=== PATIENT | male | born 1960 | race Caucasian/White ===

== ENCOUNTER 2022-06-03 07:29 | Emergency (ER) | payer OTHER ==
[~2022-06-03] VITALS: Ht 165.1 cm; Wt 88.9 kg
[2022-06-03 07:44] VITALS: BP 115/72
--- NOTE | 2022-06-03 08:02 | NUR ---
pt c/o left flank pain x3 days. denies injury or trauma. denies any urinary symptoms. urine collected and walked to lab.
[2022-06-03 08:10] LABS: APPEARANCE,URINE CLEAR (CLEAR); BILIRUBIN,URINE NEGATIVE (NEGATIVE); BLOOD, URINE NEGATIVE (NEGATIVE); COLOR,URINE YELLOW (YELLOW); LEUKOCYTE ESTERASE ,URINE NEGATIVE (NEGATIVE); NITRITE, URINE NEGATIVE (NEGATIVE); UGLUCOSE NEGATIVE (NEGATIVE)
[2022-06-03] MEDS ORDERED: methocarbamoL 500 MG TAB PO ONE (08:25)
[2022-06-03] MEDS ORDERED: LIDOCAINE 5% 1 EA PATCH TP SCH (08:25)
[2022-06-03] MEDS ORDERED: KETOROLAC 30 MG/ML VIAL IM ONE (08:25)
[2022-06-03 09:00] LABS: BASOPHILS % (AUTO) 0.7 % (0.0-2.0); EOSINOPHILS # (AUTO) 0.3 K/uL (0-0.4); EOSINOPHILS % (AUTO) 4.6 % (0.0-4.0); HEMATOCRIT 48.3 % (36-52); HEMOGLOBIN 16.6 g/dL (12.0-18.0); LYMPHOCYTES # (AUTO) 2.9 K/uL (2.0-11.5); LYMPHOCYTES % (AUTO) 42.2 % (20.5-51.1); MEAN CORPUSCULAR HEMOGLOBIN 32 pg (27-31); MEAN CORPUSCULAR HGB CONC 34 g/dL (33-37); MEAN CORPUSCULAR VOLUME 91.7 fL (80-94); MONOCYTES # (AUTO) 0.6 K/uL (0.8-1.0); MONOCYTES % (AUTO) 8.7 % (1.7-9.3); NEUTROPHILS % (AUTO) 43.8 % (42.2-75.2); PLATELET COUNT (AUTO) 160 K/uL (140-450); RED BLOOD CELL COUNT(AUTO) 5.27 MIL/uL (4.20-6.10); RED CELL DISTRIBUTION WIDTH 13.7 % (11.6-13.7); WHITE BLOOD COUNT (AUTO) 6.8 K/uL (4.8-10.8)
[2022-06-03 09:23] LABS: ALBUMIN 3.8 g/dL (3.4-5.0); ANION GAP 15.2 (8-16); CARBON DIOXIDE 25.8 mmol/L (21-32); CREATININE 1.5 mg/dL (0.6-1.3); TOTAL BILIRUBIN 0.5 mg/dL (0.0-1.0)
[2022-06-03] MEDS ORDERED: NACL 0.9% 1,000 ML IV ONE (09:45)
[2022-06-03] MEDS ORDERED: CYCL-711 PO (11:54)
[2022-06-03] MEDS ORDERED: LID5T TP (11:54)
[2022-06-03] MEDS ORDERED: IBUP-2213 PO (11:54)
[2022-06-03 12:21] VITALS: BP 129/90
--- NOTE | 2022-06-03 12:22 | NUR ---
Patient discharged with v/s stable. Written and verbal after care instructions given and explained. Patient alert, oriented and verbalized understanding of instructions. Ambulatory with steady gait. All questions addressed prior to discharge. ID band removed. Patient advised to follow up with PMD. Rx of flexeril, motrin, lidocaine patch given. Patient educated on indication of medication including possible reaction and side effects. Opportunity to ask questions provided and answered.
== END 2022-06-03 12:21 | disposition home or self-care (01) ==
LOC: MED 07:29
DX: N17.9 Acute kidney failure, unspecified (principal); R10.9 Unspecified abdominal pain; M62.838 Other muscle spasm; M54.50 Low back pain, unspecified; Z79.1 Long term (current) use of non-steroidal anti-inflammatories (NSAID); Z79.899 Other long term (current) drug therapy
CPT/HCPCS: 36415; 74176; 80053; 81003; 85025; 87086; 96360; 96372; 99284; J1885; J7030